=== PATIENT | female | born 1950 | race African-American/Black ===

== ENCOUNTER 2021-07-10 07:47 | Emergency (ER) | payer MEDICAID ==
[~2021-07-10] VITALS: Ht 167.6 cm; Wt 65.0 kg
[2021-07-10] MEDS ORDERED: DEXT 5%/0.9% NACL 500 ML IV ONE (08:30)
[2021-07-10 09:30] LABS: HEMATOCRIT. 48.4 % (36.0-48.0); HEMOGLOBIN. 17.1 g/dL (12.0-16.0); MEAN CORPUSCULAR HEMOGLOBIN 30.1 pg (28.0-32.0); MEAN CORPUSCULAR VOLUME 84.9 fL (81.0-99.0); MEAN PLATELET VOLUME 9.2 fl (7.4-10.4); PLATELET 398 x1000/uL (130-400); RED CELL DISTRIBUTION WIDTH 14.6 % (11.6-14.6)
[2021-07-10] MEDS ORDERED: ALBUTEROL 6.7GM HFA INHALER ORI ONE (09:30)
[2021-07-10 09:36] LABS: CHLORIDE 97 mEq/L (98-107)
[2021-07-10 10:12] LABS: PLATELET ESTIMATE NORMAL
[2021-07-10] MEDS ORDERED: LEVOFLOXACIN 500MG PREMIX 100 ML IV ONE (10:30)
[2021-07-10] MEDS ORDERED: LABETALOL 5MG/ML SYR 20 MG/4 ML SYRINGE IV ONE (14:45)
[2021-07-10] MEDS ORDERED: FUROSEMIDE 20MG/2ML VIAL IVP ONE (14:45)
[2021-07-10] MEDS ORDERED: LORAZEPAM 2MG/ML CPJ IM PRN (15:00)
[2021-07-10 15:50] VITALS: BP 122/72
== END 2021-07-10 16:00 | disposition short-term general hospital (02) ==
LOC: ER 07:47
DX: U07.1 COVID-19 (principal); E87.6 Hypokalemia; J18.9 Pneumonia, unspecified organism; Z88.0 Allergy status to penicillin
CPT/HCPCS: 36415; 71045; 80053; 82962; 83880; 84484; 85025; 87426; 93005; 96361; 96365; 96372; 96375; 99285; C9803; J1956; J2060; J3490; J7042; U0003; U0005; Z7610

== ENCOUNTER 2021-07-16 17:09 | Emergency (ER) | payer OTHER, MEDICAID ==
[~2021-07-16] VITALS: Ht 175.3 cm; Wt 73.0 kg
[2021-07-16] MEDS ORDERED: ALBUTEROL (0.083%) 2.5MG/3ML NEB HHN STA (18:12)
[2021-07-16] MEDS ORDERED: IPRATROPIUM BROMIDE (0.02%) 0.5MG/2.5ML NEB HHN STA (18:12)
[2021-07-16 18:52] LABS: HEMOGLOBIN. 15.7 g/dL (12.0-16.0); MEAN CORPUSCULAR HEMOGLOBIN 30.5 pg (28.0-32.0); MEAN CORPUSCULAR VOLUME 85.4 fL (81.0-99.0); MEAN PLATELET VOLUME 8.9 fl (7.4-10.4); PLATELET 485 x1000/uL (130-400); RED BLOOD CELL COUNT 5.15 mill/uL (4.2-5.4); RED CELL DISTRIBUTION WIDTH 14.4 % (11.6-14.6)
[2021-07-16 18:54] LABS: CHLORIDE 104 mEq/L (98-107)
[2021-07-16] MEDS ORDERED: LEVOFLOXACIN 750MG PREMIX 150 ML IV ONE (19:15)
[2021-07-16 19:24] LABS: PLATELET ESTIMATE INCREASED
[2021-07-16 19:38] LABS: BG BASE EXCESS -0.4 mmol/L (-2.0-2.0); BG CARBOXYHEMOGLOBIN 0.1 % (0.5-1.5); BG DEOXYHEMOGLOBIN 7.4 % (0.0-5.0); BG FRACTION INSPIRED OXYGEN 21; BG METHEMOGLOBIN 0.4 % (0.0-1.5); BG OXYGEN SATURATION 92.6 % (92.0-98.5); BG OXYHEMOGLOBIN 92.1 % (94.0-97.0); BG PCO2 24.3 mmHg (35.0-45.0); BG PH 7.534 (7.350-7.450); BG PO2 62.4 mmHg (75.0-100.0); BG SAMPLE SITE RIGHT RADIAL; BG TOTAL HEMOGLOBIN 16.5 g/dL (12.0-18.0); BG VENT MODE ROOM AIR
[2021-07-16] MEDS ORDERED: MORPHINE SULFATE 2 MG/ML CPJ (NOT FOR IM USE) IV ONE (19:45)
[2021-07-16] MEDS ORDERED: DEXAMETHASONE 10 MG/ML VIAL IV NR (19:45)
[2021-07-16] MEDS ORDERED: ONDANSETRON HCL 4MG/2ML INJ IV ONE (21:15)
[2021-07-16] MEDS ORDERED: ASPIRIN 81MG TABLET PO NR (21:30)
[2021-07-16 23:17] LABS: D-DIMER 0.95 mg/L FEU (<0.50); INR 1.2; PROTHROMBIN TIME 12.8 sec (9.6-11.0)
[2021-07-17 01:06] VITALS: BP 112/78
== END 2021-07-17 01:19 | disposition short-term general hospital (02) ==
LOC: ER 17:09 → CANBEDREQ 21:32 → ER 07-17 01:19
DX: U07.1 COVID-19 (principal); R07.89 Other chest pain; R09.02 Hypoxemia; Z20.822 Contact with and (suspected) exposure to COVID-19; Z87.891 Personal history of nicotine dependence; Z88.0 Allergy status to penicillin
CPT/HCPCS: 36415; 36600; 71045; 80053; 82375; 82728; 82805; 83605; 83880; 84145; 84484; 85025; 85379; 85610; 86140; 87040; 93005; 94640; 96365; 96375; 99291; C9803; J1100; J1956; J2270; J2405; U0003; U0005